=== PATIENT | female | born 1970 | race Caucasian/White ===

== ENCOUNTER 2024-02-29 08:51 | Outpatient (CLI) | payer BC, SELFPAY ==
--- NOTE | 2024-02-29 08:52 | US_ITS ---
PROCEDURE: US TRANSVAGINAL CLINICAL INDICATION: gretchen menopausal bleeding, abnormal uterine bleedin COMPARISON: No exams were available for comparison FINDINGS: Transvaginal sonographic images of the pelvis were obtained. UTERUS: 9.4 cm x 5.8 cmx 4.7 cm anteverted with a combined endometrial thickness of 7.2mm. There is a small echogenic foci adjacent to the posterior endometrium. There are multiple nabothian cysts in the cervix. The largest measures 0.96 cm. There are at least 3 small solid areas within the cervix with the largest measuring 0.75 cm. The cervix has an unusual appearance with both solid and cystic areas within the cervix. . LEFT OVARY: Was not visualized transvaginally or transabdominally. RIGHT OVARY: 3cmx [id number] with a volume of 5.6ml. There is a follicle measuring 1.0 cm x 0.9 cm There is a small amount of fluid adjacent to the right ovary. The right ovary is seen and appears normal. Doppler flow to right ovary is seen. There is no fluid in the cul-de-sac. IMPRESSION: 1. The uterus is anteverted and bulky. The endometrium measures 7.2 mm. 2. The cervix has an unusual appearance with both solid and cystic areas. The cervix appears enlarged. 3. The left ovary is not visualized. 4. The right ovary appears normal and has a small follicle measuring 1 cm. 5. No fluid in the cul-de-sac. Dictated by: Eric Lofton MD 02/29/2024 10:36 Eric Lofton MD in [facility] 02/29/2024 10:36
== END 2024-02-29 23:59 | disposition home or self-care (01) ==
LOC: RAD 08:52
PROVIDERS: PCP Obstetrics & Gynecology; Visit Provider Obstetrics & Gynecology
DX: N93.9 Abnormal uterine and vaginal bleeding, unspecified (principal)
CPT/HCPCS: 76830